=== PATIENT | female | born 1985 | race Caucasian/White ===

== ENCOUNTER 2020-03-14 20:23 | Emergency (ER) | payer BC ==
[~2020-03-14] VITALS: Ht 165.1 cm; Wt 69.8 kg
[2020-03-14] MEDS ORDERED: CLONAZEPAM 0.50.5 M1 PO (20:59)
[2020-03-14] MEDS ORDERED: SPIRONOLACTONE100 M3 PO (21:00)
[2020-03-14] MEDS ORDERED: VITAMIN C500 M2 PO (21:00)
[2020-03-14] MEDS ORDERED: DULOXETINE HCL20 MG PO (21:00)
[2020-03-14 21:24] LABS: ABSOLUTE BASOPHILS 0.1 thou/uL (0.0-0.2); ABSOLUTE EOSINOPHILS 0.1 thou/uL (0.0-0.7); ABSOLUTE LYMPHOCYTES 3.7 thou/uL (0.8-5.3); ABSOLUTE MONOCYTES 0.5 thou/uL (0.0-1.2); ABSOLUTE NEUTROPHILS 7.4 thou/uL (1.6-8.1); BASOPHILS 0.7 %; EOSINOPHILS 1.2 %; HEMATOCRIT 42.5 % (37.0-47.0); HEMOGLOBIN 14.7 gm/dL (12.0-15.0); MCH 31.3 pg (26.0-34.0); MCHC 34.6 g/dL (28.0-37.0); MCV 90.4 fL (80.0-100.0); MPV 6.6 fl. (7.2-11.1); NUCLEATED RBCS 0 /100WBC; PLATELET COUNT* 343 thou/uL (150-400); POLYS 63.1 %; WBC 11.8 thou/uL (4.0-11.0)
[2020-03-14 21:28] LABS: CALCIUM 9.4 mg/dL (8.5-10.1); POTASSIUM 3.5 mmol/L (3.5-5.1)
[2020-03-14 21:33] LABS: ALBUMIN 4.4 g/dL (3.4-5.0); TOTAL BILIRUBIN 0.4 mg/dL (<0.1-1.0); TOTAL PROTEIN 8.7 g/dL (6.4-8.2)
[2020-03-14 21:38] LABS: URINE BILIRUBIN NEGATIVE (Negative); URINE BLOOD NEGATIVE (Negative); URINE CLARITY CLEAR; URINE COLOR YELLOW; URINE GLUCOSE-RANDOM NEGATIVE (Negative); URINE KETONES NEGATIVE (Negative); URINE LEUKOCYTES-REFLEX NEGATIVE (Negative); URINE NITRITE-REFLEX NEGATIVE (Negative); URINE PROTEIN NEGATIVE (Negative); URINE UROBILINOGEN 0.2 E.U./dl (0.2-1.0)
[2020-03-14 21:47] LABS: AMP/METHAMP POSITIVE (Negative); BARBITURATES Negative (Negative); BENZODIAZEPINES Negative (Negative); COCAINE Negative (Negative); METHADONE Negative (Negative); OPIATES Negative (Negative); PCP Negative (Negative); THC Negative (Negative)
[2020-03-14] MEDS ORDERED: ADDERALL 20 MG20 MG PO (22:01)
[2020-03-14] MEDS ORDERED: ZOFRAN ODT4 MG PO (23:11)
[2020-03-14] MEDS ORDERED: MUPIROCIN15 GM TOP (23:11)
[2020-03-14 23:26] VITALS: BP 138/78
--- NOTE | 2020-03-16 12:34 | EKG ---
[place] [address] ELECTROCARDIOGRAM REPORT Name: ILEANA COE Room: 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
== END 2020-03-14 23:27 | disposition home or self-care (01) ==
LOC: M.ERS 20:23
PROVIDERS: Emergency Medicine
DX: K92.1 Melena (principal); R10.31 Right lower quadrant pain; Z20.828 Contact with and (suspected) exposure to other viral communicable diseases; Z98.890 Other specified postprocedural states; Z88.0 Allergy status to penicillin